=== PATIENT | female | born 1970 | race Caucasian/White ===

== ENCOUNTER 2018-11-13 14:11 | Inpatient (IN) ==
[2018-11-13] MEDS ORDERED: Isovue-370 500 ML BOTTLE IVP ONE (14:20)
[2018-11-13] MEDS ORDERED: *HR* FentaNYL (PF) 100 MCG/2 ML VIAL IVP ONE (14:22)
[2018-11-13 15:05] LABS: Mean Platelet Volume 11.4 fL (9.4-12.4)
[2018-11-13 15:07] LABS: Hematocrit 31.3 % (35.3-44.9); Mean Corpuscular HGB Conc 31.9 g/dL (31.6-35.5); Mean Corpuscular Hemoglobin 29.8 pg (28.0-33.3); Mean Corpuscular Volume 93.2 fL (83.0-100.0); Monocytes # 0.3 K/mcL (0.0-1.3); Platelet Count 179 K/mcL (140-400); Red Blood Count 3.36 M/mcL (3.82-4.97); Red Cell Distribution Width 18.5 % (11.5-14.5); White Blood Count 1.8 K/mcL (4.3-11.1)
[2018-11-13 15:25] LABS: Alanine Aminotransferase 8 Units/L (7-52); Albumin/Globulin Ratio 1.5 (1.1-2.2); Alkaline Phosphatase 69 Units/L (34-104); Aspartate Amino Transferase 10 Units/L (13-39); BUN/Creatinine Ratio 27 (6-26); Bilirubin,Total 0.2 mg/dL (0.3-1.0); Blood Urea Nitrogen 14 mg/dL (6-20); Calcium 9.3 mg/dL (8.6-10.3); Carbon Dioxide 26 mEq/L (23-29); Chloride 99 mEq/L (98-107); Globulin 2.7 g/dL (2.4-3.5); Glucose 86 mg/dL (70-105); Magnesium 1.9 mg/dL (1.6-2.6); Osmolality,Calculated 282 (280-300); Potassium 3.6 mEq/L (3.5-5.1); Sodium 136 mEq/L (136-145); Total Protein 6.7 g/dL (6.4-8.9); eGFR For African Americans > 60 (> 60); eGFR For Non-African Americans > 60 (> 60)
[2018-11-13 15:38] LABS: Lymphocytes # 0.6 K/mcL (0.6-4.6); Neutrophils # 0.9 K/mcL (1.6-8.9); Reactive Lymphocytes Present (Not Present)
[2018-11-13 15:39] LABS: Platelet Estimate Normal (Normal)
[2018-11-13 15:40] LABS: Toxic Granulation Present (Not Present)
[2018-11-13] MEDS ORDERED: *HR* HYDROmorphone (PF) 1 MG/ML SYRINGE IVP ONE (16:35)
[2018-11-13] MEDS ORDERED: Piperacillin/Tazobactam 3.375 GM in 0.9 % Sodium Chloride Mini Bag 100 ML IVPB ONE (16:36)
[2018-11-13] MEDS ORDERED: levoFLOXacin 500 MG/100 ML 500 MG/100 ML BAG IVPB ONE (16:36)
[2018-11-13] MEDS ORDERED: Naloxone 0.4 MG/ML INJ IVP PRN (17:13)
[2018-11-13] MEDS ORDERED: *HR* HYDROcodone/Acet 5/325 mg TABLET GTUBE PRN (17:13)
[2018-11-13] MEDS ORDERED: Albuterol 2.5 MG/3 ML NEBULIZER IH PRN (17:18)
[2018-11-13 17:22] LABS: Bilirubin,Urine Negative (Negative); Blood,Urine Negative (Negative); Clarity,Urine Clear (Clear); Color,Urine Yellow (Yellow); Glucose,Urine (UA) Normal (Normal); Ketones,Urine Negative (Negative); Leukocyte Esterase,Urine Negative (Negative); Nitrite,Urine Negative (Negative); PH,Urine 8.5 pH Units (5.0-8.0); Protein,Urine Negative (Neg-Trace); Specific Gravity,Urine > 1.030 (1.010-1.025); Urobilinogen,Urine Normal (Normal)
[2018-11-13] MEDS ORDERED: *HR* OxyCODONE/APAP 5/325 TABLET GTUBE PRN (18:08)
[2018-11-13 18:11] LABS: Prothrombin Time 11.3 Seconds (9.4-12.1)
[2018-11-13 18:13] LABS: Activated Partial Thrombo Time 33.4 Seconds (26.0-36.0)
[2018-11-13] MEDS: D5% in Lactated Ringers 1,000 ML IVC SCH ×2 (20:34→20:54)
[2018-11-13] MEDS: traZODone 50 MG TABLET PO SCH ×2 (20:41→20:53)
[2018-11-13] MEDS: *HR* Heparin 5,000 UNIT/ML VIAL SQ SCH (20:41)
[2018-11-13] MEDS: Ondansetron 4 MG/2 ML VIAL IVP PRN (21:39)
[2018-11-14] MEDS ORDERED: *HR* Methadone 5 MG TABLET PO SCH
[2018-11-14] MEDS ORDERED: *HR* Methadone 10 MG TABLET PO SCH
[2018-11-14] MEDS: Cefepime HCl 2,000 MG in Water for inj. (sterile) 20 ML IVP SCH ×2 (00:02→08:44)
[2018-11-14] MEDS ORDERED: *HR* OxyCODONE Oral Soln 5 MG/5 ML UD.LIQ GTUBE PRN ×2 (00:51→02:29)
[2018-11-14] MEDS ORDERED: Saline Nasal Spray 44 ML BOTTLE NS PRN (00:53)
[2018-11-14] MEDS ORDERED: *HR* OxyCODONE Oral Soln 5 MG/5 ML UD.LIQ PO PRN (02:41)
[2018-11-14 05:22] LABS: Hemoglobin 9.1 g/dL (11.5-15.4); Red Cell Distribution Width 18.6 % (11.5-14.5)
[2018-11-14 05:24] LABS: Hematocrit 27.9 % (35.3-44.9); Mean Corpuscular HGB Conc 32.6 g/dL (31.6-35.5); Mean Corpuscular Hemoglobin 29.6 pg (28.0-33.3); Mean Corpuscular Volume 90.9 fL (83.0-100.0); Mean Platelet Volume 10.7 fL (9.4-12.4); Platelet Count 167 K/mcL (140-400); Red Blood Count 3.07 M/mcL (3.82-4.97); White Blood Count 1.4 K/mcL (4.3-11.1)
[2018-11-14] MEDS: *HR* Heparin 5,000 UNIT/ML VIAL SQ SCH ×3 (05:39→20:40)
[2018-11-14] MEDS: D5% in Lactated Ringers 1,000 ML IVC SCH (05:40)
[2018-11-14 05:41] LABS: BUN/Creatinine Ratio 15 (6-26); Blood Urea Nitrogen 8 mg/dL (6-20); Calcium 8.1 mg/dL (8.6-10.3); Carbon Dioxide 25 mEq/L (23-29); Chloride 106 mEq/L (98-107); Glucose 112 mg/dL (70-105); Magnesium 1.7 mg/dL (1.6-2.6); Osmolality,Calculated 279 (280-300); Phosphorous 3.4 mg/dL (2.7-4.5); Potassium 3.4 mEq/L (3.5-5.1); Sodium 135 mEq/L (136-145); eGFR For African Americans > 60 (> 60); eGFR For Non-African Americans > 60 (> 60)
[2018-11-14 06:59] LABS: Lymphocytes # 0.4 K/mcL (0.6-4.6); Monocytes # 0.1 K/mcL (0.0-1.3); Neutrophils # 0.9 K/mcL (1.6-8.9)
[2018-11-14 07:00] LABS: Platelet Estimate Normal (Normal); Toxic Granulation Present (Not Present)
[2018-11-14] MEDS: *HR* Methadone 5 MG TABLET PO SCH ×2 (08:02→15:34)
[2018-11-14] MEDS: *HR* OxyCODONE Oral Soln 5 MG/5 ML UD.LIQ PO PRN ×4 (08:45→20:38)
[2018-11-14] MEDS ORDERED: Potassium Chloride Elixir 20 MEQ/15 ML UDC GTUBE ONE (09:00)
[2018-11-14] MEDS ORDERED: *HR* LORazepam 0.5 MG TABLET PO SCH (09:00)
[2018-11-14] MEDS ORDERED: Topiramate 25 MG CAP.SPRINK PO SCH (09:00)
[2018-11-14] MEDS: Ondansetron 4 MG/2 ML VIAL IVP PRN (10:49)
[2018-11-14] MEDS: Potassium Chloride Elixir 20 MEQ/15 ML UDC GTUBE SCH ×2 (10:49→20:37)
[2018-11-14] MEDS ORDERED: HydrOXYzine SYP 10 MG/5 ML UDC GTUBE PRN (14:16)
[2018-11-14] MEDS: Metoclopramide 10 MG/10 ML UD.LIQ GTUBE PRN (14:27)
[2018-11-14] MEDS: tiZANidine 4 MG TABLET GTUBE SCH ×2 (15:34→20:38)
[2018-11-14] MEDS: *HR* LORazepam 0.5 MG TABLET GTUBE SCH ×2 (15:34→20:38)
[2018-11-14] MEDS: Gabapentin 400 MG CAPSULE GTUBE SCH ×2 (15:34→20:38)
[2018-11-14] MEDS: Piperacillin/Tazobactam 3.375 GM in 0.9 % Sodium Chloride Mini Bag 100 ML IVPB SCH (15:35)
[2018-11-14] MEDS: Nystatin SUSP 5 ML UD.LIQ PO SCH ×2 (16:15→20:58)
[2018-11-14] MEDS: Famotidine 20 MG TABLET GTUBE SCH (20:37)
[2018-11-14] MEDS: traZODone 50 MG TABLET GTUBE SCH (20:37)
[2018-11-14] MEDS: Topiramate 25 MG CAP.SPRINK PO SCH (20:37)
[2018-11-15] MEDS: *HR* Methadone 5 MG TABLET PO SCH ×3 (00:39→17:17)
[2018-11-15] MEDS: *HR* OxyCODONE Oral Soln 5 MG/5 ML UD.LIQ PO PRN ×6 (00:40→21:53)
[2018-11-15] MEDS: Piperacillin/Tazobactam 3.375 GM in 0.9 % Sodium Chloride Mini Bag 100 ML IVPB SCH ×3 (00:40→17:17)
[2018-11-15] MEDS: *HR* Heparin 5,000 UNIT/ML VIAL SQ SCH ×3 (04:43→21:55)
[2018-11-15 08:22] LABS: Basophils % 0.6 %; Mean Platelet Volume 10.5 fL (9.4-12.4); Red Cell Distribution Width 18.8 % (11.5-14.5)
[2018-11-15 08:23] LABS: Eosinophils % 2.4 %; Hematocrit 30.8 % (35.3-44.9); Hemoglobin 9.9 g/dL (11.5-15.4); Immature Granulocytes % 0.6 % (0-4); Lymphocytes # 0.4 K/mcL (0.6-4.6); Lymphocytes % 23.5 %; Mean Corpuscular HGB Conc 32.1 g/dL (31.6-35.5); Mean Corpuscular Hemoglobin 30.3 pg (28.0-33.3); Mean Corpuscular Volume 94.2 fL (83.0-100.0); Monocytes # 0.3 K/mcL (0.0-1.3); Monocytes % 15.1 %; Platelet Count 188 K/mcL (140-400); Red Blood Count 3.27 M/mcL (3.82-4.97); Segmented Neutrophils % 57.8 %; White Blood Count 1.7 K/mcL (4.3-11.1)
[2018-11-15] MEDS: Potassium Chloride Elixir 20 MEQ/15 ML UDC GTUBE SCH ×2 (08:45→21:54)
[2018-11-15] MEDS: Famotidine 20 MG TABLET GTUBE SCH ×2 (08:46→21:54)
[2018-11-15] MEDS: *HR* LORazepam 0.5 MG TABLET GTUBE SCH ×3 (08:46→21:55)
[2018-11-15] MEDS: Nystatin SUSP 5 ML UD.LIQ PO SCH ×4 (08:46→21:53)
[2018-11-15] MEDS: Gabapentin 400 MG CAPSULE GTUBE SCH ×3 (08:46→21:54)
[2018-11-15 08:47] LABS: Platelet Estimate Normal (Normal)
[2018-11-15] MEDS: tiZANidine 4 MG TABLET GTUBE SCH ×3 (08:47→21:54)
[2018-11-15] MEDS: Topiramate 25 MG CAP.SPRINK PO SCH ×2 (08:47→21:53)
[2018-11-15 08:48] LABS: Anisocytosis 1+ (Not Present)
[2018-11-15] MEDS: Metoclopramide 10 MG/10 ML UD.LIQ GTUBE PRN (09:21)
[2018-11-15] MEDS ORDERED: GuaiFENesin Liq 200 MG/10 ML UDC GTUBE PRN (17:09)
[2018-11-15] MEDS: traZODone 50 MG TABLET GTUBE SCH (21:54)
[2018-11-15] MEDS: Silver Sulfadiazine 50 GM TUBE TP SCH (21:55)
[2018-11-16] MEDS: *HR* Methadone 5 MG TABLET PO SCH ×2 (00:48→08:20)
[2018-11-16] MEDS: Piperacillin/Tazobactam 3.375 GM in 0.9 % Sodium Chloride Mini Bag 100 ML IVPB SCH ×2 (00:48→08:21)
[2018-11-16] MEDS: *HR* OxyCODONE Oral Soln 5 MG/5 ML UD.LIQ PO PRN ×5 (03:42→21:19)
[2018-11-16] MEDS: *HR* Heparin 5,000 UNIT/ML VIAL SQ SCH ×3 (05:35→21:19)
[2018-11-16 06:43] LABS: Immature Granulocytes % 0.7 % (0-4)
[2018-11-16 06:44] LABS: Eosinophils % 2.9 %; Hematocrit 32.1 % (35.3-44.9); Hemoglobin 10.4 g/dL (11.5-15.4); Lymphocytes # 0.3 K/mcL (0.6-4.6); Lymphocytes % 22.6 %; Mean Corpuscular HGB Conc 32.4 g/dL (31.6-35.5); Mean Corpuscular Hemoglobin 30.1 pg (28.0-33.3); Mean Platelet Volume 10.3 fL (9.4-12.4); Monocytes # 0.2 K/mcL (0.0-1.3); Monocytes % 16.1 %; Neutrophils # 0.8 K/mcL (1.6-8.9); Platelet Count 212 K/mcL (140-400); Red Blood Count 3.45 M/mcL (3.82-4.97); Red Cell Distribution Width 18.6 % (11.5-14.5); Segmented Neutrophils % 57.7 %; White Blood Count 1.4 K/mcL (4.3-11.1)
[2018-11-16 07:01] LABS: BUN/Creatinine Ratio 7 (6-26); Blood Urea Nitrogen 5 mg/dL (6-20); Calcium 8.6 mg/dL (8.6-10.3); Carbon Dioxide 26 mEq/L (23-29); Chloride 103 mEq/L (98-107); Glucose 88 mg/dL (70-105); Osmolality,Calculated 283 (280-300); Sodium 138 mEq/L (136-145); eGFR For African Americans > 60 (> 60); eGFR For Non-African Americans > 60 (> 60)
[2018-11-16] MEDS: Nystatin SUSP 5 ML UD.LIQ PO SCH ×4 (08:21→21:20)
[2018-11-16] MEDS ORDERED: Sennosides 8.6 MG TABLET PO SCH (09:00)
[2018-11-16] MEDS: tiZANidine 4 MG TABLET GTUBE SCH ×3 (09:43→21:20)
[2018-11-16] MEDS: Gabapentin 400 MG CAPSULE GTUBE SCH ×3 (09:43→21:20)
[2018-11-16] MEDS: Topiramate 25 MG CAP.SPRINK PO SCH ×2 (09:43→21:20)
[2018-11-16] MEDS: *HR* LORazepam 0.5 MG TABLET GTUBE SCH ×3 (09:44→21:20)
[2018-11-16] MEDS: Potassium Chloride Elixir 20 MEQ/15 ML UDC GTUBE SCH ×2 (09:44→21:20)
[2018-11-16] MEDS: Famotidine 20 MG TABLET GTUBE SCH ×2 (09:44→21:20)
[2018-11-16] MEDS: Silver Sulfadiazine 50 GM TUBE TP SCH ×2 (10:12→21:22)
[2018-11-16] MEDS: Metoclopramide 10 MG/10 ML UD.LIQ GTUBE PRN (10:52)
[2018-11-16] MEDS ORDERED: Aminoglycoside Consult 1 EACH MC ONE (15:32)
[2018-11-16] MEDS ORDERED: 0.9 % Sodium Chloride 1,000 ML ONE (15:58)
[2018-11-16] MEDS: 0.9 % Sodium Chloride 1,000 ML IVC SCH (16:04)
[2018-11-16] MEDS: Methadone Oral Concentrate 50 MG/5 ML UDC PO SCH (17:13)
[2018-11-16] MEDS: Amoxicillin/Clavulanate 400 MG/5 ML UDC GTUBE SCH (17:14)
[2018-11-16] MEDS: traZODone 50 MG TABLET GTUBE SCH (21:20)
[2018-11-17] MEDS: Methadone Oral Concentrate 50 MG/5 ML UDC PO SCH ×3 (00:41→15:20)
[2018-11-17 05:04] LABS: Basophils % 0.7 %; Mean Corpuscular Hemoglobin 30.3 pg (28.0-33.3); Mean Platelet Volume 10.4 fL (9.4-12.4)
[2018-11-17 05:06] LABS: Eosinophils # 0.1 K/mcL (0.0-0.6); Eosinophils % 3.3 %; Hematocrit 38.1 % (35.3-44.9); Hemoglobin 12.1 g/dL (11.5-15.4); Immature Granulocytes % 0.7 % (0-4); Lymphocytes % 29.6 %; Mean Corpuscular HGB Conc 31.8 g/dL (31.6-35.5); Mean Corpuscular Volume 95.3 fL (83.0-100.0); Monocytes # 0.3 K/mcL (0.0-1.3); Monocytes % 17.1 %; Neutrophils # 0.7 K/mcL (1.6-8.9); Platelet Count 218 K/mcL (140-400); Segmented Neutrophils % 48.6 %; White Blood Count 1.5 K/mcL (4.3-11.1)
[2018-11-17 05:08] LABS: Lymphocytes # 0.4 K/mcL (0.6-4.6)
[2018-11-17 05:25] LABS: BUN/Creatinine Ratio 15 (6-26); Blood Urea Nitrogen 9 mg/dL (6-20); Calcium 8.3 mg/dL (8.6-10.3); Carbon Dioxide 21 mEq/L (23-29); Chloride 108 mEq/L (98-107); Glucose 117 mg/dL (70-105); Osmolality,Calculated 284 (280-300); Potassium 4.6 mEq/L (3.5-5.1); Sodium 137 mEq/L (136-145); eGFR For African Americans > 60 (> 60); eGFR For Non-African Americans > 60 (> 60)
[2018-11-17 05:30] LABS: Anisocytosis 1+ (Not Present)
[2018-11-17 05:31] LABS: Platelet Estimate Normal (Normal); Reactive Lymphocytes Present (Not Present)
[2018-11-17] MEDS: *HR* Heparin 5,000 UNIT/ML VIAL SQ SCH ×2 (05:47→12:24)
[2018-11-17] MEDS: Amoxicillin/Clavulanate 400 MG/5 ML UDC GTUBE SCH ×2 (05:47→15:21)
[2018-11-17] MEDS: *HR* OxyCODONE Oral Soln 5 MG/5 ML UD.LIQ PO PRN ×2 (07:42→12:23)
[2018-11-17] MEDS: Nystatin SUSP 5 ML UD.LIQ PO SCH ×3 (07:43→15:20)
[2018-11-17] MEDS: Topiramate 25 MG CAP.SPRINK PO SCH (07:43)
[2018-11-17] MEDS: *HR* LORazepam 0.5 MG TABLET GTUBE SCH ×2 (07:43→15:20)
[2018-11-17] MEDS: Famotidine 20 MG TABLET GTUBE SCH (07:43)
[2018-11-17] MEDS: tiZANidine 4 MG TABLET GTUBE SCH ×2 (07:43→15:20)
[2018-11-17] MEDS: Gabapentin 400 MG CAPSULE GTUBE SCH ×2 (07:43→15:20)
[2018-11-17] MEDS: Potassium Chloride Elixir 20 MEQ/15 ML UDC GTUBE SCH (07:44)
[2018-11-17] MEDS: Silver Sulfadiazine 50 GM TUBE TP SCH (07:45)
[2018-11-17 08:18] VITALS: BP 95/57
[2018-11-17] MEDS: 0.9 % Sodium Chloride 1,000 ML IVC SCH (14:08)
== END 2018-11-17 15:33 | disposition home health service (06) | DRG 872 ==
LOC: EMEROOARM 14:11 → 3ANU 14:11 → SUATTDRO 18:56 → 3ANU 19:44
PROVIDERS: ADMIT Internal Medicine; ATTEND Family Medicine

== ENCOUNTER 2020-06-11 12:51 | Inpatient (IN) ==
[2020-06-11] MEDS ORDERED: Isovue-370 500 ML BOTTLE IVP ONE (13:10)
[2020-06-11] MEDS ORDERED: *HR* FentaNYL (PF) 100 MCG/2 ML VIAL IVP ONE (13:11)
[2020-06-11 13:48] LABS: Basophils % 0.5 %; Eosinophils % 0.3 %; Hematocrit 43.2 % (35.3-44.9); Hemoglobin 14.1 g/dL (11.5-15.4); Immature Granulocytes % 0.2 % (0-4); Lymphocytes % 16.5 %; Mean Corpuscular HGB Conc 32.6 g/dL (31.6-35.5); Mean Corpuscular Hemoglobin 28.3 pg (28.0-33.3); Mean Corpuscular Volume 86.7 fL (83.0-100.0); Mean Platelet Volume 9.4 fL (9.4-12.4); Monocytes # 0.3 K/mcL (0.0-1.3); Monocytes % 4.3 %; Neutrophils # 4.7 K/mcL (1.6-8.9); Platelet Count 388 K/mcL (140-400); Red Blood Count 4.98 M/mcL (3.82-4.97); Red Cell Distribution Width 13.4 % (11.5-14.5); Segmented Neutrophils % 78.2 %; White Blood Count 6.1 K/mcL (4.3-11.1)
[2020-06-11 13:59] LABS: Activated Partial Thrombo Time 30.8 Seconds (26.0-36.0)
[2020-06-11 14:03] LABS: BUN/Creatinine Ratio 7 (6-26); Blood Urea Nitrogen 5 mg/dL (6-20); Calcium 9.7 mg/dL (8.6-10.3); Carbon Dioxide 26 mEq/L (23-29); Chloride 102 mEq/L (98-107); Glucose 95 mg/dL (70-105); Osmolality,Calculated 281 (280-300); Potassium 3.4 mEq/L (3.5-5.1); Sodium 137 mEq/L (136-145); eGFR For African Americans > 60 (> 60); eGFR For Non-African Americans > 60 (> 60)
[2020-06-11] MEDS ORDERED: Naloxone 0.4 MG/ML INJ IVP PRN (15:26)
[2020-06-11] MEDS ORDERED: Morphine Sulfate 2 MG/ML SYRINGE IVP ONE (15:27)
[2020-06-11] MEDS ORDERED: Ondansetron 4 MG/2 ML VIAL IVP ONE (15:32)
[2020-06-11] MEDS ORDERED: 0.9 % Sodium Chloride 1,000 ML IV ONE (15:33)
[2020-06-11] MEDS ORDERED: Potassium Chloride 40 MEQ in D5% in 0.9% NACL 1,000 ML IVC SCH (15:45)
[2020-06-11] MEDS: Morphine Sulfate 2 MG/ML SYRINGE IVP PRN (18:46)
[2020-06-11] MEDS ORDERED: *HR* LORazepam 2 MG/ML VIAL IVP ONE (21:14)
[2020-06-12] MEDS: Morphine Sulfate 2 MG/ML SYRINGE IVP PRN ×3 (01:15→13:42)
[2020-06-12 01:57] LABS: Eosinophils # 0.1 K/mcL (0.0-0.6); Eosinophils % 2.3 %; Hematocrit 37.7 % (35.3-44.9); Lymphocytes # 1.2 K/mcL (0.6-4.6); Lymphocytes % 38.4 %; Mean Corpuscular HGB Conc 32.6 g/dL (31.6-35.5); Mean Corpuscular Hemoglobin 28.9 pg (28.0-33.3); Mean Corpuscular Volume 88.5 fL (83.0-100.0); Mean Platelet Volume 9.3 fL (9.4-12.4); Monocytes # 0.3 K/mcL (0.0-1.3); Neutrophils # 1.5 K/mcL (1.6-8.9); Platelet Count 291 K/mcL (140-400); Red Blood Count 4.26 M/mcL (3.82-4.97); Red Cell Distribution Width 13.5 % (11.5-14.5); Segmented Neutrophils % 48.3 %; White Blood Count 3.1 K/mcL (4.3-11.1)
[2020-06-12 02:09] LABS: Hemoglobin 12.3 g/dL (11.5-15.4)
[2020-06-12 02:18] LABS: BUN/Creatinine Ratio 9 (6-26); Blood Urea Nitrogen 6 mg/dL (6-20); Calcium 8.5 mg/dL (8.6-10.3); Carbon Dioxide 22 mEq/L (23-29); Chloride 110 mEq/L (98-107); Glucose 82 mg/dL (70-105); Magnesium 1.8 mg/dL (1.6-2.6); Osmolality,Calculated 285 (280-300); Phosphorous 3.6 mg/dL (2.7-4.5); Potassium 3.7 mEq/L (3.5-5.1); Sodium 139 mEq/L (136-145); eGFR For African Americans > 60 (> 60); eGFR For Non-African Americans > 60 (> 60)
[2020-06-12 02:24] LABS: Platelet Estimate Normal (Normal)
[2020-06-12 08:15] LABS: Adenovirus Not Detected (Not Detect); Coronavirus 229E Not Detected (Not Detect); Coronavirus HKU1 Not Detected (Not Detect); Coronavirus NL63 Not Detected (Not Detect); Coronavirus OC43 Not Detected (Not Detect); Human Metapneumovirus Not Detected (Not Detect); Human Rhinovirus/Enterovirus Not Detected (Not Detect); Influenza A Subtype 2009 H1 Not Detected (Not Detect); SARS-CoV-2 Not Detected (Not Detect)
[2020-06-12 08:16] LABS: Bordetella Pertussis Not Detected (Not Detect); Chlamydophila pneumoniae Not Detected (Not Detect); Influenza B Not Detected (Not Detect); Mycoplasma pneumoniae Not Detected (Not Detect); Parainfluenza Virus 1 Not Detected (Not Detect); Parainfluenza Virus 2 Not Detected (Not Detect); Parainfluenza Virus 3 Not Detected (Not Detect); Parainfluenza Virus 4 Not Detected (Not Detect); Respiratory Syncytial Virus Not Detected (Not Detect)
[2020-06-12] MEDS: D5% in 0.9% NACL 1,000 ML IVC SCH (08:46)
[2020-06-12] MEDS ORDERED: Levothyroxine Sodium 100 MCG VIAL IVP SCH (09:00)
[2020-06-12] MEDS ORDERED: Ondansetron 4 MG/2 ML VIAL ONE (10:51)
[2020-06-12] MEDS ORDERED: *HR* Propofol 200 MG/20 ML VIAL IVP ONE ×2 (10:51→11:42)
[2020-06-12] MEDS ORDERED: Lidocaine -MPF 2% 2 ML VIAL ONE (10:51)
[2020-06-12] MEDS ORDERED: *HR* FentaNYL (PF) 100 MCG/2 ML VIAL ONE (10:51)
[2020-06-12] MEDS: *HR* HYDROmorphone PF 0.5 MG/0.5 ML SYRINGE IVP PRN ×3 (12:15→12:39)
[2020-06-12] MEDS ORDERED: Pantoprazole 40 MG VIAL IVP ONE (14:37)
[2020-06-12] MEDS ORDERED: Ketorolac 15 MG/ML VIAL IM ONE (16:06)
[2020-06-12] MEDS ORDERED: Morphine Sulfate 2 MG/ML SYRINGE IVP PRN (16:09)
[2020-06-12] MEDS ORDERED: Simethicone 40 MG/0.6 ML MLS PO PRN (16:26)
[2020-06-12] MEDS: Ondansetron 4 MG/2 ML VIAL IVP PRN (18:35)
[2020-06-12] MEDS: Simethicone 40 MG/0.6 ML MLS GTUBE PRN (19:41)
[2020-06-12] MEDS: tiZANidine 4 MG TABLET GTUBE SCH (20:14)
[2020-06-12] MEDS: Gabapentin 300 MG CAPSULE GTUBE SCH (20:14)
[2020-06-12] MEDS: traZODone 50 MG TABLET GTUBE SCH (20:15)
[2020-06-12 20:50] LABS: Hematocrit 33.3 % (35.3-44.9); Hemoglobin 11.1 g/dL (11.5-15.4)
[2020-06-12] MEDS: *HR* HYDROmorphone (PF) 1 MG/ML SYRINGE IVP PRN ×2 (21:25→23:37)
[2020-06-13] MEDS ORDERED: Prochlorperazine 10 MG/2 ML VIAL IVP PRN (00:31)
[2020-06-13] MEDS: D5% in 0.9% NACL 1,000 ML IVC SCH ×2 (01:11→15:50)
[2020-06-13 02:10] LABS: Basophils % 0.1 %; Hematocrit 29.4 % (35.3-44.9); Hemoglobin 9.7 g/dL (11.5-15.4); Immature Granulocytes % 0.3 % (0-4); Lymphocytes # 0.4 K/mcL (0.6-4.6); Lymphocytes % 4.8 %; Mean Corpuscular Hemoglobin 28.6 pg (28.0-33.3); Mean Corpuscular Volume 86.7 fL (83.0-100.0); Mean Platelet Volume 9.6 fL (9.4-12.4); Monocytes # 0.6 K/mcL (0.0-1.3); Monocytes % 6.2 %; Platelet Count 250 K/mcL (140-400); Red Blood Count 3.39 M/mcL (3.82-4.97); Red Cell Distribution Width 13.1 % (11.5-14.5); Segmented Neutrophils % 88.6 %
[2020-06-13 02:11] LABS: Neutrophils # 8.1 K/mcL (1.6-8.9); White Blood Count 9.1 K/mcL (4.3-11.1)
[2020-06-13 02:26] LABS: BUN/Creatinine Ratio 14 (6-26); Blood Urea Nitrogen 8 mg/dL (6-20); Calcium 7.8 mg/dL (8.6-10.3); Carbon Dioxide 21 mEq/L (23-29); Chloride 105 mEq/L (98-107); Glucose 401 mg/dL (70-105); Magnesium 1.5 mg/dL (1.6-2.6); Osmolality,Calculated 295 (280-300); Phosphorous 3.7 mg/dL (2.7-4.5); Potassium 3.5 mEq/L (3.5-5.1); Sodium 135 mEq/L (136-145); eGFR For African Americans > 60 (> 60); eGFR For Non-African Americans > 60 (> 60)
[2020-06-13] MEDS: *HR* HYDROmorphone (PF) 1 MG/ML SYRINGE IVP PRN ×6 (03:17→16:03)
[2020-06-13] MEDS: Topiramate 25 MG TABLET GTUBE SCH (08:07)
[2020-06-13] MEDS: Gabapentin 300 MG CAPSULE GTUBE SCH ×3 (08:07→20:13)
[2020-06-13] MEDS ORDERED: RIBOFLAVIN 100 MG GTUBE SCH (09:00)
[2020-06-13] MEDS: Simethicone 40 MG/0.6 ML MLS GTUBE PRN (09:23)
[2020-06-13] MEDS: Methadone Oral Concentrate 50 MG/5 ML UDC GTUBE SCH (17:55)
[2020-06-13] MEDS: *HR* OxyCODONE Oral Soln 5 MG/5 ML UD.LIQ GTUBE PRN (20:12)
[2020-06-13] MEDS: traZODone 50 MG TABLET GTUBE SCH (20:13)
[2020-06-13] MEDS: tiZANidine 4 MG TABLET GTUBE SCH (20:13)
[2020-06-13] MEDS: Metoclopramide 10 MG/10 ML UD.LIQ GTUBE SCH (21:00)
[2020-06-13] MEDS ORDERED: Acetaminophen IV 500 MG/50 ML BAG IVPB ONE (23:00)
[2020-06-13] MEDS ORDERED: Acetaminophen IV 500 MG/50 ML BAG IVPB SCH (23:00)
[2020-06-14] MEDS: *HR* OxyCODONE Oral Soln 5 MG/5 ML UD.LIQ GTUBE PRN ×6 (00:05→20:50)
[2020-06-14 02:16] LABS: Basophils % 0.1 %; Eosinophils % 0.1 %; Hemoglobin 10.1 g/dL (11.5-15.4); Immature Granulocytes % 0.2 % (0-4); Lymphocytes # 0.4 K/mcL (0.6-4.6); Lymphocytes % 3.8 %; Mean Corpuscular HGB Conc 33.7 g/dL (31.6-35.5); Mean Corpuscular Hemoglobin 28.9 pg (28.0-33.3); Mean Platelet Volume 9.6 fL (9.4-12.4); Monocytes # 0.6 K/mcL (0.0-1.3); Monocytes % 5.7 %; Neutrophils # 8.7 K/mcL (1.6-8.9); Platelet Count 248 K/mcL (140-400); Red Blood Count 3.49 M/mcL (3.82-4.97); Red Cell Distribution Width 13.3 % (11.5-14.5); Segmented Neutrophils % 90.1 %; White Blood Count 9.7 K/mcL (4.3-11.1)
[2020-06-14 02:37] LABS: % Iron Saturation 4 % (15-50); BUN/Creatinine Ratio 13 (6-26); Blood Urea Nitrogen 6 mg/dL (6-20); Calcium 7.8 mg/dL (8.6-10.3); Carbon Dioxide 24 mEq/L (23-29); Chloride 100 mEq/L (98-107); Glucose 119 mg/dL (70-105); Iron 12 mcg/dL (50-170); Magnesium 1.9 mg/dL (1.6-2.6); Osmolality,Calculated 273 (280-300); Sodium 132 mEq/L (136-145); Transferrin 192 mg/dL (203-362); eGFR For African Americans > 60 (> 60); eGFR For Non-African Americans > 60 (> 60)
[2020-06-14 02:52] LABS: Ferritin 57 ng/mL (10-120)
[2020-06-14 02:58] LABS: Folate 4.1 ng/mL (3.0-16.0)
[2020-06-14] MEDS: Methadone Oral Concentrate 50 MG/5 ML UDC GTUBE SCH ×2 (03:53→15:44)
[2020-06-14] MEDS ORDERED: Potassium Chloride 40 MEQ, Lidocaine 1% 2 ML in 0.9 % Sodium Chloride 500 ML IVPB ONE (07:32)
[2020-06-14] MEDS ORDERED: Iron Sucrose Complex 200 MG in 0.9 % Sodium Chloride 100 ML IVPB ONE (07:33)
[2020-06-14] MEDS ORDERED: Cyanocobalamin (B-12) 1,000 MCG/ML VIAL SQ ONE (07:33)
[2020-06-14] MEDS: Metoclopramide 10 MG/10 ML UD.LIQ GTUBE SCH ×3 (08:27→20:54)
[2020-06-14] MEDS: Topiramate 25 MG TABLET GTUBE SCH (08:28)
[2020-06-14] MEDS: Gabapentin 300 MG CAPSULE GTUBE SCH ×3 (08:28→20:50)
[2020-06-14] MEDS: Ondansetron 4 MG/2 ML VIAL IVP PRN (08:29)
[2020-06-14] MEDS: Multivitamin Liquid 15 ML UDC GTUBE SCH (08:47)
[2020-06-14] MEDS: tiZANidine 4 MG TABLET GTUBE SCH (20:50)
[2020-06-14] MEDS: traZODone 50 MG TABLET GTUBE SCH (20:50)
[2020-06-15] MEDS: Methadone Oral Concentrate 50 MG/5 ML UDC GTUBE SCH ×2 (04:48→16:07)
[2020-06-15] MEDS: *HR* OxyCODONE Oral Soln 5 MG/5 ML UD.LIQ GTUBE PRN ×5 (04:49→21:22)
[2020-06-15] MEDS: Ondansetron 4 MG/2 ML VIAL IVP PRN ×3 (04:49→21:43)
[2020-06-15 05:48] LABS: Basophils % 0.3 %; Eosinophils # 0.1 K/mcL (0.0-0.6); Eosinophils % 2.1 %; Hematocrit 25.5 % (35.3-44.9); Immature Granulocytes % 0.5 % (0-4); Lymphocytes # 0.3 K/mcL (0.6-4.6); Lymphocytes % 4.2 %; Mean Corpuscular HGB Conc 32.9 g/dL (31.6-35.5); Mean Corpuscular Hemoglobin 29.1 pg (28.0-33.3); Mean Corpuscular Volume 88.2 fL (83.0-100.0); Mean Platelet Volume 9.7 fL (9.4-12.4); Monocytes # 0.5 K/mcL (0.0-1.3); Monocytes % 7.1 %; Neutrophils # 5.7 K/mcL (1.6-8.9); Platelet Count 182 K/mcL (140-400); Red Blood Count 2.89 M/mcL (3.82-4.97); Red Cell Distribution Width 13.8 % (11.5-14.5); Segmented Neutrophils % 85.8 %; White Blood Count 6.7 K/mcL (4.3-11.1)
[2020-06-15 05:49] LABS: Hemoglobin 8.4 g/dL (11.5-15.4)
[2020-06-15 06:42] LABS: BUN/Creatinine Ratio 16 (6-26); Blood Urea Nitrogen 9 mg/dL (6-20); Carbon Dioxide 27 mEq/L (23-29); Chloride 102 mEq/L (98-107); Glucose 112 mg/dL (70-105); Magnesium 1.9 mg/dL (1.6-2.6); Osmolality,Calculated 277 (280-300); Phosphorous 1.5 mg/dL (2.7-4.5); Potassium 3.6 mEq/L (3.5-5.1); Sodium 134 mEq/L (136-145); eGFR For African Americans > 60 (> 60); eGFR For Non-African Americans > 60 (> 60)
[2020-06-15] MEDS: Topiramate 25 MG TABLET GTUBE SCH (08:30)
[2020-06-15] MEDS: Gabapentin 300 MG CAPSULE GTUBE SCH ×3 (08:30→21:22)
[2020-06-15] MEDS: Metoclopramide 10 MG/10 ML UD.LIQ GTUBE SCH ×3 (08:30→21:21)
[2020-06-15] MEDS: Multivitamin Liquid 15 ML UDC GTUBE SCH (08:30)
[2020-06-15] MEDS: traZODone 50 MG TABLET GTUBE SCH (21:21)
[2020-06-15] MEDS: tiZANidine 4 MG TABLET GTUBE SCH (21:31)
[2020-06-16] MEDS: *HR* OxyCODONE Oral Soln 5 MG/5 ML UD.LIQ GTUBE PRN ×5 (02:43→19:52)
[2020-06-16 03:49] LABS: Basophils % 0.2 %; Eosinophils # 0.2 K/mcL (0.0-0.6); Eosinophils % 2.8 %; Hematocrit 27.2 % (35.3-44.9); Hemoglobin 8.5 g/dL (11.5-15.4); Immature Granulocytes % 0.5 % (0-4); Lymphocytes # 0.6 K/mcL (0.6-4.6); Lymphocytes % 9.8 %; Mean Corpuscular HGB Conc 31.3 g/dL (31.6-35.5); Mean Corpuscular Hemoglobin 28.6 pg (28.0-33.3); Mean Corpuscular Volume 91.6 fL (83.0-100.0); Monocytes # 0.5 K/mcL (0.0-1.3); Monocytes % 8.2 %; Neutrophils # 4.8 K/mcL (1.6-8.9); Platelet Count 232 K/mcL (140-400); Red Blood Count 2.97 M/mcL (3.82-4.97); Red Cell Distribution Width 13.8 % (11.5-14.5); Segmented Neutrophils % 78.5 %; White Blood Count 6.1 K/mcL (4.3-11.1)
[2020-06-16 03:51] LABS: Alanine Aminotransferase 7 Units/L (7-52); Albumin 3.4 g/dL (3.5-5.7); Albumin/Globulin Ratio 1.3 (1.1-2.2); Alkaline Phosphatase 84 Units/L (34-104); Aspartate Amino Transferase 14 Units/L (13-39); BUN/Creatinine Ratio 13 (6-26); Bilirubin,Indirect 0.3 mg/dL (0.0-1.0); Bilirubin,Total 0.3 mg/dL (0.3-1.0); Blood Urea Nitrogen 7 mg/dL (6-20); Calcium 8.6 mg/dL (8.6-10.3); Carbon Dioxide 28 mEq/L (23-29); Chloride 101 mEq/L (98-107); Globulin 2.7 g/dL (2.4-3.5); Glucose 98 mg/dL (70-105); Magnesium 1.9 mg/dL (1.6-2.6); Osmolality,Calculated 278 (280-300); Potassium 3.6 mEq/L (3.5-5.1); Sodium 135 mEq/L (136-145); Total Protein 6.1 g/dL (6.4-8.9); eGFR For African Americans > 60 (> 60); eGFR For Non-African Americans > 60 (> 60)
[2020-06-16] MEDS: Methadone Oral Concentrate 50 MG/5 ML UDC GTUBE SCH ×2 (04:31→16:59)
[2020-06-16] MEDS: Topiramate 25 MG TABLET GTUBE SCH (08:36)
[2020-06-16] MEDS: Gabapentin 300 MG CAPSULE GTUBE SCH ×3 (08:36→19:51)
[2020-06-16] MEDS: Multivitamin Liquid 15 ML UDC GTUBE SCH (08:37)
[2020-06-16] MEDS: Metoclopramide 10 MG/10 ML UD.LIQ GTUBE SCH ×3 (08:37→19:52)
[2020-06-16] MEDS: Ondansetron 4 MG/2 ML VIAL IVP PRN (09:04)
[2020-06-16] MEDS: tiZANidine 4 MG TABLET GTUBE SCH (19:52)
[2020-06-16] MEDS: traZODone 50 MG TABLET GTUBE SCH (19:52)
[2020-06-17] MEDS: *HR* OxyCODONE Oral Soln 5 MG/5 ML UD.LIQ GTUBE PRN ×4 (02:21→21:33)
[2020-06-17] MEDS ORDERED: polyethylene glycoL 3350 17 GM POWD.PACK PO PRN (04:31)
[2020-06-17] MEDS: Methadone Oral Concentrate 50 MG/5 ML UDC GTUBE SCH ×2 (04:41→16:22)
[2020-06-17 04:48] LABS: Basophils % 0.2 %; Eosinophils # 0.2 K/mcL (0.0-0.6); Eosinophils % 2.6 %; Hematocrit 27.6 % (35.3-44.9); Hemoglobin 8.7 g/dL (11.5-15.4); Immature Granulocytes % 0.5 % (0-4); Lymphocytes # 0.4 K/mcL (0.6-4.6); Lymphocytes % 6.9 %; Mean Corpuscular HGB Conc 31.5 g/dL (31.6-35.5); Mean Corpuscular Hemoglobin 28.3 pg (28.0-33.3); Mean Corpuscular Volume 89.9 fL (83.0-100.0); Mean Platelet Volume 10.4 fL (9.4-12.4); Monocytes # 0.8 K/mcL (0.0-1.3); Monocytes % 12.3 %; Neutrophils # 4.9 K/mcL (1.6-8.9); Platelet Count 302 K/mcL (140-400); Red Blood Count 3.07 M/mcL (3.82-4.97); Red Cell Distribution Width 13.9 % (11.5-14.5); Segmented Neutrophils % 77.5 %; White Blood Count 6.3 K/mcL (4.3-11.1)
[2020-06-17 05:07] LABS: BUN/Creatinine Ratio 17 (6-26); Blood Urea Nitrogen 8 mg/dL (6-20); Calcium 8.4 mg/dL (8.6-10.3); Carbon Dioxide 28 mEq/L (23-29); Chloride 101 mEq/L (98-107); Glucose 97 mg/dL (70-105); Magnesium 1.8 mg/dL (1.6-2.6); Osmolality,Calculated 278 (280-300); Potassium 3.9 mEq/L (3.5-5.1); Sodium 135 mEq/L (136-145); eGFR For African Americans > 60 (> 60); eGFR For Non-African Americans > 60 (> 60)
[2020-06-17] MEDS: Topiramate 25 MG TABLET GTUBE SCH (08:42)
[2020-06-17] MEDS: Metoclopramide 10 MG/10 ML UD.LIQ GTUBE SCH ×3 (08:42→21:17)
[2020-06-17] MEDS: Multivitamin Liquid 15 ML UDC GTUBE SCH (08:42)
[2020-06-17] MEDS: Gabapentin 300 MG CAPSULE GTUBE SCH ×3 (08:43→21:13)
[2020-06-17] MEDS: tiZANidine 4 MG TABLET GTUBE SCH (21:13)
[2020-06-17] MEDS: traZODone 50 MG TABLET GTUBE SCH (21:17)
[2020-06-18] MEDS: *HR* OxyCODONE Oral Soln 5 MG/5 ML UD.LIQ GTUBE PRN ×3 (01:58→10:25)
[2020-06-18] MEDS ORDERED: Acetaminophen 325 MG TABLET PO PRN (03:03)
[2020-06-18] MEDS: Methadone Oral Concentrate 50 MG/5 ML UDC GTUBE SCH (03:38)
[2020-06-18 07:01] LABS: Basophils % 0.2 %; Eosinophils # 0.1 K/mcL (0.0-0.6); Eosinophils % 1.9 %; Hematocrit 26.5 % (35.3-44.9); Hemoglobin 8.6 g/dL (11.5-15.4); Immature Granulocytes % 0.7 % (0-4); Lymphocytes # 0.4 K/mcL (0.6-4.6); Lymphocytes % 6.4 %; Mean Corpuscular HGB Conc 32.5 g/dL (31.6-35.5); Mean Corpuscular Hemoglobin 28.1 pg (28.0-33.3); Mean Corpuscular Volume 86.6 fL (83.0-100.0); Mean Platelet Volume 9.7 fL (9.4-12.4); Monocytes # 0.9 K/mcL (0.0-1.3); Monocytes % 15.4 %; Neutrophils # 4.4 K/mcL (1.6-8.9); Platelet Count 290 K/mcL (140-400); Red Blood Count 3.06 M/mcL (3.82-4.97); Red Cell Distribution Width 13.9 % (11.5-14.5); Segmented Neutrophils % 75.4 %; White Blood Count 5.8 K/mcL (4.3-11.1)
[2020-06-18 07:37] LABS: BUN/Creatinine Ratio 19 (6-26); Blood Urea Nitrogen 9 mg/dL (6-20); Calcium 8.8 mg/dL (8.6-10.3); Carbon Dioxide 26 mEq/L (23-29); Chloride 99 mEq/L (98-107); Glucose 79 mg/dL (70-105); Magnesium 1.8 mg/dL (1.6-2.6); Osmolality,Calculated 274 (280-300); Phosphorous 3.3 mg/dL (2.7-4.5); Potassium 3.8 mEq/L (3.5-5.1); Sodium 133 mEq/L (136-145); eGFR For African Americans > 60 (> 60); eGFR For Non-African Americans > 60 (> 60)
[2020-06-18] MEDS: Gabapentin 300 MG CAPSULE GTUBE SCH (08:16)
[2020-06-18] MEDS: Multivitamin Liquid 15 ML UDC GTUBE SCH (08:16)
[2020-06-18] MEDS: Topiramate 25 MG TABLET GTUBE SCH (08:16)
[2020-06-18] MEDS: Metoclopramide 10 MG/10 ML UD.LIQ GTUBE SCH (08:17)
[2020-06-18 10:42] VITALS: BP 127/67
== END 2020-06-18 13:02 | disposition home health service (06) | DRG 391 ==
LOC: 3ANU 12:51 → EMEROOARM 12:51 → SUATTDRO 15:50 → 3ANU 16:42 → SUATTDRO 06-14 21:46
PROVIDERS: ADMIT Pharmacist; ATTEND Internal Medicine

== ENCOUNTER 2020-07-08 10:02 | Inpatient (IN) ==
[2020-07-08] MEDS ORDERED: 0.9 % Sodium Chloride 1,000 ML IVC ONE (10:34)
[2020-07-08 11:20] LABS: Basophils # 0.1 K/mcL (0.0-0.2); Basophils % 0.5 %; Eosinophils # 0.4 K/mcL (0.0-0.6); Hematocrit 29.8 % (35.3-44.9); Hemoglobin 9.1 g/dL (11.5-15.4); Immature Granulocytes % 0.8 % (0-4); Lymphocytes # 1.3 K/mcL (0.6-4.6); Lymphocytes % 12.8 %; Mean Corpuscular HGB Conc 30.5 g/dL (31.6-35.5); Mean Corpuscular Hemoglobin 26.5 pg (28.0-33.3); Mean Corpuscular Volume 86.9 fL (83.0-100.0); Monocytes # 0.6 K/mcL (0.0-1.3); Neutrophils # 7.5 K/mcL (1.6-8.9); Platelet Count 572 K/mcL (140-400); Red Blood Count 3.43 M/mcL (3.82-4.97); Red Cell Distribution Width 15.3 % (11.5-14.5); Segmented Neutrophils % 75.9 %; White Blood Count 9.9 K/mcL (4.3-11.1)
[2020-07-08] MEDS ORDERED: Isovue-370 500 ML BOTTLE IVP ONE (11:40)
[2020-07-08 11:42] LABS: Alanine Aminotransferase 11 Units/L (7-52); Albumin 3.3 g/dL (3.5-5.7); Albumin/Globulin Ratio 0.8 (1.1-2.2); Alkaline Phosphatase 165 Units/L (34-104); Aspartate Amino Transferase 15 Units/L (13-39); BUN/Creatinine Ratio 12 (6-26); Bilirubin,Direct 0.1 mg/dL (0.0-0.2); Bilirubin,Indirect 0.3 mg/dL (0.0-1.0); Bilirubin,Total 0.4 mg/dL (0.3-1.0); Blood Urea Nitrogen 7 mg/dL (6-20); Calcium 8.8 mg/dL (8.6-10.3); Carbon Dioxide 28 mEq/L (23-29); Chloride 95 mEq/L (98-107); Globulin 4.4 g/dL (2.4-3.5); Glucose 111 mg/dL (70-105); Lipase 81 Units/L (11-82); Osmolality,Calculated 273 (280-300); Potassium 3.6 mEq/L (3.5-5.1); Sodium 132 mEq/L (136-145); Total Protein 7.7 g/dL (6.4-8.9); eGFR For African Americans > 60 (> 60); eGFR For Non-African Americans > 60 (> 60)
[2020-07-08] MEDS ORDERED: Ondansetron 4 MG/2 ML VIAL IVP ONE ×2 (11:51→16:04)
[2020-07-08] MEDS ORDERED: Ketorolac 15 MG/ML VIAL IVP ONE (11:51)
[2020-07-08 11:59] LABS: Troponin I < 0.03 ng/mL (< 0.04)
[2020-07-08] MEDS ORDERED: *HR* FentaNYL (PF) 100 MCG/2 ML VIAL IVP ONE (13:25)
[2020-07-08] MEDS ORDERED: *HR* HYDROmorphone (PF) 1 MG/ML SYRINGE IVP ONE ×2 (14:26→16:04)
[2020-07-08 15:44] LABS: Bilirubin,Urine Negative (Negative); Blood,Urine Negative (Negative); Clarity,Urine Clear (Clear); Color,Urine Light-Yellow (Yellow); Glucose,Urine (UA) Normal (Normal); Ketones,Urine Negative (Negative); Leukocyte Esterase,Urine Negative (Negative); Mucus,Urine Few per lpf (None-Few); Nitrite,Urine Negative (Negative); Protein,Urine 30 mg/dL (Neg-Trace); Specific Gravity,Urine > 1.030 (1.010-1.025); Squamous Epithelial Cell,Urine Moderate per hpf (None-Few)
[2020-07-08] MEDS ORDERED: *HR* Heparin 5,000 UNIT/ML VIAL IVP ONE (15:53)
[2020-07-08] MEDS ORDERED: *HR* Heparin 5,000 UNIT/ML VIAL IVP PRN ×2 (15:53)
[2020-07-08] MEDS: Heparin 25,000UNIT/250ML 1/2NS 25,000 UNIT/250 ML IV.SOLN IVC SCH (16:18)
[2020-07-08 16:54] LABS: Heparin anti-factor XA UFH < 0.04 IU/mL (0.30-0.70); INR 1.3; Prothrombin Time 14.8 Seconds (9.4-12.1)
[2020-07-08 16:56] LABS: Activated Partial Thrombo Time 32.1 Seconds (26.0-36.0)
[2020-07-08] MEDS ORDERED: Ondansetron 4 MG/2 ML VIAL IVP PRN (17:38)
[2020-07-08] MEDS ORDERED: Naloxone 0.4 MG/ML INJ IVP PRN (17:38)
[2020-07-08] MEDS ORDERED: Melatonin 3 MG TABLET PO PRN (17:38)
[2020-07-08] MEDS ORDERED: Ringers Solution, Lactated 1,000 ML IVC SCH (17:45)
[2020-07-08] MEDS: Morphine Sulfate 2 MG/ML SYRINGE IVP PRN (19:51)
[2020-07-09] MEDS: Morphine Sulfate 2 MG/ML SYRINGE IVP PRN ×5 (00:48→20:08)
[2020-07-09 05:59] LABS: Basophils % 0.5 %; Eosinophils % 0.1 %; Hematocrit 24.7 % (35.3-44.9); Hemoglobin 7.7 g/dL (11.5-15.4); Immature Granulocytes % 0.8 % (0-4); Lymphocytes # 1.1 K/mcL (0.6-4.6); Lymphocytes % 15.5 %; Mean Corpuscular HGB Conc 31.2 g/dL (31.6-35.5); Mean Corpuscular Volume 86.7 fL (83.0-100.0); Mean Platelet Volume 9.6 fL (9.4-12.4); Monocytes # 0.7 K/mcL (0.0-1.3); Neutrophils # 5.4 K/mcL (1.6-8.9); Platelet Count 431 K/mcL (140-400); Red Blood Count 2.85 M/mcL (3.82-4.97); Red Cell Distribution Width 15.3 % (11.5-14.5); Segmented Neutrophils % 74.1 %; White Blood Count 7.3 K/mcL (4.3-11.1)
[2020-07-09 06:19] LABS: % Iron Saturation 6 % (15-50); Alanine Aminotransferase 8 Units/L (7-52); Albumin 2.5 g/dL (3.5-5.7); Albumin/Globulin Ratio 0.8 (1.1-2.2); Alkaline Phosphatase 122 Units/L (34-104); Aspartate Amino Transferase 11 Units/L (13-39); BUN/Creatinine Ratio 13 (6-26); Bilirubin,Total 0.3 mg/dL (0.3-1.0); Blood Urea Nitrogen 7 mg/dL (6-20); Calcium 7.9 mg/dL (8.6-10.3); Carbon Dioxide 26 mEq/L (23-29); Chloride 102 mEq/L (98-107); Globulin 3.3 g/dL (2.4-3.5); Glucose 85 mg/dL (70-105); Iron 11 mcg/dL (50-170); Magnesium 1.8 mg/dL (1.6-2.6); Osmolality,Calculated 277 (280-300); Phosphorous 2.9 mg/dL (2.7-4.5); Potassium 3.6 mEq/L (3.5-5.1); Sodium 135 mEq/L (136-145); Total Protein 5.8 g/dL (6.4-8.9); Transferrin 130 mg/dL (203-362); eGFR For African Americans > 60 (> 60); eGFR For Non-African Americans > 60 (> 60)
[2020-07-09 06:33] LABS: Ferritin 218 ng/mL (10-120)
[2020-07-09 06:38] LABS: Folate 10.5 ng/mL (3.0-16.0)
[2020-07-09 06:52] LABS: Platelet Estimate Normal (Normal)
[2020-07-09] MEDS ORDERED: Lidocaine/EPI 1:100k 1% 50 ML VIAL ONE (07:29)
[2020-07-09] MEDS ORDERED: 0.9 % Sodium Chloride 500 ML ONE ×3 (07:29→08:00)
[2020-07-09] MEDS ORDERED: *HR* Midazolam HCl 2 MG/2 ML VIAL IVP ONE (07:55)
[2020-07-09] MEDS ORDERED: *HR* FentaNYL (PF) 100 MCG/2 ML VIAL IVP ONE (07:55)
[2020-07-09] MEDS ORDERED: Isovue-300 50ML VIAL IVP ONE (08:18)
[2020-07-09] MEDS: Pantoprazole 40 MG VIAL IVP SCH (10:00)
[2020-07-09 11:34] LABS: Hematocrit 30.7 % (35.3-44.9)
[2020-07-09 11:43] LABS: Hemoglobin 9.6 g/dL (11.5-15.4)
[2020-07-09] MEDS ORDERED: Morphine Sulfate 2 MG/ML SYRINGE IVP ONE (16:21)
[2020-07-09] MEDS ORDERED: Warfarin perPT PO PRN (18:00)
[2020-07-09 18:12] LABS: INR 1.2; Prothrombin Time 14.3 Seconds (9.4-12.1)
[2020-07-09] MEDS: Acetaminophen IV 1,000 MG/100 ML BAG IVPB PRN (18:39)
[2020-07-10] MEDS: Morphine Sulfate 2 MG/ML SYRINGE IVP PRN ×3 (00:12→08:43)
[2020-07-10 02:51] LABS: Basophils # 0.1 K/mcL (0.0-0.2); Basophils % 0.5 %; Eosinophils # 0.3 K/mcL (0.0-0.6); Eosinophils % 3.2 %; Hematocrit 25.7 % (35.3-44.9); Immature Granulocytes % 0.7 % (0-4); Lymphocytes % 9.8 %; Mean Corpuscular HGB Conc 30.7 g/dL (31.6-35.5); Mean Corpuscular Hemoglobin 26.2 pg (28.0-33.3); Mean Corpuscular Volume 85.1 fL (83.0-100.0); Mean Platelet Volume 9.7 fL (9.4-12.4); Monocytes # 0.7 K/mcL (0.0-1.3); Monocytes % 7.4 %; Neutrophils # 7.6 K/mcL (1.6-8.9); Platelet Count 441 K/mcL (140-400); Red Blood Count 3.02 M/mcL (3.82-4.97); Red Cell Distribution Width 15.1 % (11.5-14.5); Segmented Neutrophils % 78.4 %; White Blood Count 9.7 K/mcL (4.3-11.1)
[2020-07-10 02:55] LABS: Hemoglobin 7.9 g/dL (11.5-15.4)
[2020-07-10 02:59] LABS: INR 1.3; Prothrombin Time 15.1 Seconds (9.4-12.1)
[2020-07-10 03:08] LABS: BUN/Creatinine Ratio 15 (6-26); Blood Urea Nitrogen 7 mg/dL (6-20); Calcium 7.8 mg/dL (8.6-10.3); Carbon Dioxide 24 mEq/L (23-29); Chloride 100 mEq/L (98-107); Glucose 108 mg/dL (70-105); Osmolality,Calculated 275 (280-300); Potassium 3.3 mEq/L (3.5-5.1); Sodium 133 mEq/L (136-145); eGFR For African Americans > 60 (> 60); eGFR For Non-African Americans > 60 (> 60)
[2020-07-10] MEDS: Acetaminophen IV 1,000 MG/100 ML BAG IVPB PRN (03:40)
[2020-07-10 07:03] LABS: Adenovirus Not Detected (Not Detect); Bordetella Pertussis Not Detected (Not Detect); Chlamydophila pneumoniae Not Detected (Not Detect); Coronavirus 229E Not Detected (Not Detect); Coronavirus HKU1 Not Detected (Not Detect); Coronavirus NL63 Not Detected (Not Detect); Coronavirus OC43 Not Detected (Not Detect); Human Metapneumovirus Not Detected (Not Detect); Human Rhinovirus/Enterovirus Not Detected (Not Detect); Influenza A Subtype 2009 H1 Not Detected (Not Detect); Influenza B Not Detected (Not Detect); Mycoplasma pneumoniae Not Detected (Not Detect); Parainfluenza Virus 1 Not Detected (Not Detect); Parainfluenza Virus 2 Not Detected (Not Detect); Parainfluenza Virus 3 Not Detected (Not Detect); Parainfluenza Virus 4 Not Detected (Not Detect); Respiratory Syncytial Virus Not Detected (Not Detect); SARS-CoV-2 Not Detected (Not Detect)
[2020-07-10] MEDS ORDERED: Potassium Chloride 20 MEQ, Lidocaine 1% 2 ML in 0.9 % Sodium Chloride 250 ML IVPB ONE (08:23)
[2020-07-10] MEDS: Pantoprazole 40 MG VIAL IVP SCH (08:44)
[2020-07-10] MEDS ORDERED: hydrOXYzine pamoate 25 MG CAPSULE PO PRN (12:45)
[2020-07-10] MEDS ORDERED: *HR* HYDROmorphone (PF) 1 MG/ML SYRINGE IVP STA ×2 (12:45→15:39)
[2020-07-10] MEDS ORDERED: Melatonin 3 MG TABLET GTUBE PRN (12:52)
[2020-07-10 13:21] LABS: Hematocrit 27.7 % (35.3-44.9); Hemoglobin 8.6 g/dL (11.5-15.4)
[2020-07-10] MEDS ORDERED: Isovue-370 500 ML BOTTLE IVP ONE (13:44)
[2020-07-10] MEDS: Heparin 25,000UNIT/250ML 1/2NS 25,000 UNIT/250 ML IV.SOLN IVC SCH (15:01)
[2020-07-10] MEDS: *HR* Methadone 5 MG TABLET PO SCH ×2 (18:35→22:22)
[2020-07-10] MEDS: Gabapentin 300 MG CAPSULE GTUBE SCH ×2 (18:36→20:49)
[2020-07-10] MEDS: Topiramate 25 MG TABLET GTUBE SCH (18:36)
[2020-07-10] MEDS: tiZANidine 4 MG TABLET GTUBE SCH (20:49)
[2020-07-10] MEDS: traZODone 50 MG TABLET GTUBE SCH (20:50)
[2020-07-11] MEDS ORDERED: Acetaminophen IV 1,000 MG/100 ML BAG IVPB ONE (00:07)
[2020-07-11] MEDS ORDERED: Albumin 25% 25gram/100mL 25 GM/100 ML IV.SOLN IVPB ONE (04:13)
[2020-07-11 04:16] LABS: Bacteria,Urine Few per hpf (None-Few); Bilirubin,Urine Negative (Negative); Blood,Urine Negative (Negative); Clarity,Urine Clear (Clear); Color,Urine Light-Yellow (Yellow); Glucose,Urine (UA) Normal (Normal); Ketones,Urine Negative (Negative); Leukocyte Esterase,Urine Moderate (Negative); Mucus,Urine Few per lpf (None-Few); Nitrite,Urine Negative (Negative); PH,Urine 6.5 pH Units (5.0-8.0); Protein,Urine Negative (Neg-Trace); RBC,Urine 0-3 per hpf (0-3); Specific Gravity,Urine 1.011 (1.010-1.025); Squamous Epithelial Cell,Urine Moderate per hpf (None-Few); Urobilinogen,Urine Normal (Normal); WBC,Urine 15-30 per hpf (0-3)
[2020-07-11] MEDS ORDERED: *HR* Heparin 5,000 UNIT/ML VIAL SQ SCH (06:00)
[2020-07-11] MEDS: *HR* Methadone 5 MG TABLET PO SCH ×2 (06:03→17:45)
[2020-07-11 06:31] LABS: Basophils % 0.5 %; Eosinophils # 0.6 K/mcL (0.0-0.6); Eosinophils % 6.5 %; Hematocrit 23.2 % (35.3-44.9); Hemoglobin 7.1 g/dL (11.5-15.4); Immature Granulocytes % 0.5 % (0-4); Lymphocytes # 1.1 K/mcL (0.6-4.6); Lymphocytes % 12.5 %; Mean Corpuscular HGB Conc 30.6 g/dL (31.6-35.5); Mean Corpuscular Hemoglobin 26.8 pg (28.0-33.3); Mean Corpuscular Volume 87.5 fL (83.0-100.0); Mean Platelet Volume 9.9 fL (9.4-12.4); Monocytes # 0.7 K/mcL (0.0-1.3); Neutrophils # 6.4 K/mcL (1.6-8.9); Platelet Count 377 K/mcL (140-400); Red Blood Count 2.65 M/mcL (3.82-4.97); Red Cell Distribution Width 15.2 % (11.5-14.5); White Blood Count 8.9 K/mcL (4.3-11.1)
[2020-07-11 06:47] LABS: INR 1.3; Prothrombin Time 14.8 Seconds (9.4-12.1)
[2020-07-11 06:54] LABS: BUN/Creatinine Ratio 14 (6-26); Blood Urea Nitrogen 8 mg/dL (6-20); Carbon Dioxide 26 mEq/L (23-29); Chloride 100 mEq/L (98-107); Glucose 101 mg/dL (70-105); Osmolality,Calculated 274 (280-300); Potassium 3.3 mEq/L (3.5-5.1); Sodium 133 mEq/L (136-145); eGFR For African Americans > 60 (> 60); eGFR For Non-African Americans > 60 (> 60)
[2020-07-11] MEDS: Heparin 25,000UNIT/250ML 1/2NS 25,000 UNIT/250 ML IV.SOLN IVC SCH ×2 (07:21→13:02)
[2020-07-11] MEDS: Gabapentin 300 MG CAPSULE GTUBE SCH ×3 (07:54→19:44)
[2020-07-11] MEDS: Topiramate 25 MG TABLET GTUBE SCH (07:54)
[2020-07-11] MEDS ORDERED: Potassium Chloride Elixir 20 MEQ/15 ML UDC GTUBE ONE (08:08)
[2020-07-11] MEDS ORDERED: *HR* HYDROmorphone (PF) 1 MG/ML SYRINGE IM ONE (08:24)
[2020-07-11] MEDS ORDERED: *HR* OxyCODONE Oral Soln 5 MG/5 ML UD.LIQ PO PRN (11:37)
[2020-07-11] MEDS ORDERED: *HR* Heparin 5,000 UNIT/ML VIAL IVP PRN ×2 (11:59)
[2020-07-11 13:21] LABS: INR 1.2; Prothrombin Time 14.1 Seconds (9.4-12.1)
[2020-07-11 13:24] LABS: Heparin anti-factor XA UFH < 0.04 IU/mL (0.30-0.70)
[2020-07-11 16:11] LABS: Hematocrit 23.9 % (35.3-44.9); Hemoglobin 7.3 g/dL (11.5-15.4)
[2020-07-11] MEDS: Pantoprazole 40 MG VIAL IVP SCH (17:46)
[2020-07-11] MEDS: traZODone 50 MG TABLET GTUBE SCH (19:44)
[2020-07-11] MEDS: tiZANidine 4 MG TABLET GTUBE SCH (19:44)
[2020-07-11 22:13] LABS: Hematocrit 20.1 % (35.3-44.9); Hemoglobin 6.4 g/dL (11.5-15.4)
[2020-07-12] MEDS ORDERED: 0.9 % Sodium Chloride 250 ML ONE (01:10)
[2020-07-12] MEDS: Pantoprazole 40 MG VIAL IVP SCH ×2 (05:41→17:32)
[2020-07-12] MEDS: *HR* Methadone 5 MG TABLET PO SCH ×2 (05:42→17:31)
[2020-07-12 06:01] LABS: Basophils % 0.2 %; Eosinophils # 0.5 K/mcL (0.0-0.6); Eosinophils % 3.8 %; Hematocrit 26.6 % (35.3-44.9); Immature Granulocytes % 0.4 % (0-4); Lymphocytes % 8.2 %; Mean Corpuscular Hemoglobin 28.1 pg (28.0-33.3); Mean Corpuscular Volume 87.8 fL (83.0-100.0); Mean Platelet Volume 9.9 fL (9.4-12.4); Monocytes # 0.8 K/mcL (0.0-1.3); Neutrophils # 10.2 K/mcL (1.6-8.9); Platelet Count 357 K/mcL (140-400); Red Blood Count 3.03 M/mcL (3.82-4.97); Red Cell Distribution Width 14.8 % (11.5-14.5); Segmented Neutrophils % 81.4 %; White Blood Count 12.5 K/mcL (4.3-11.1)
[2020-07-12 06:03] LABS: Hemoglobin 8.5 g/dL (11.5-15.4)
[2020-07-12 06:15] LABS: BUN/Creatinine Ratio 13 (6-26); Blood Urea Nitrogen 8 mg/dL (6-20); Calcium 8.2 mg/dL (8.6-10.3); Carbon Dioxide 27 mEq/L (23-29); Chloride 98 mEq/L (98-107); Glucose 98 mg/dL (70-105); Osmolality,Calculated 274 (280-300); Potassium 3.7 mEq/L (3.5-5.1); Sodium 133 mEq/L (136-145); eGFR For African Americans > 60 (> 60); eGFR For Non-African Americans > 60 (> 60)
[2020-07-12 06:32] LABS: INR 1.2; Prothrombin Time 14.1 Seconds (9.4-12.1)
[2020-07-12] MEDS: Gabapentin 300 MG CAPSULE GTUBE SCH ×3 (08:48→20:57)
[2020-07-12] MEDS: Topiramate 25 MG TABLET GTUBE SCH (08:49)
[2020-07-12 08:51] LABS: Hematocrit 25.4 % (35.3-44.9); Hemoglobin 7.9 g/dL (11.5-15.4)
[2020-07-12] MEDS: *HR* LORazepam 2 MG/ML VIAL IVP PRN ×2 (10:16→18:20)
[2020-07-12] MEDS ORDERED: *HR* Propofol 200 MG/20 ML VIAL IVP ONE (11:05)
[2020-07-12] MEDS ORDERED: Lidocaine -MPF 2% 2 ML VIAL ONE (11:06)
[2020-07-12] MEDS: Ringers Solution, Lactated 1,000 ML IVC SCH (11:26)
[2020-07-12] MEDS: cefTRIAXone 1,000 MG in Water for inj. (sterile) 10 ML IVP SCH (13:39)
[2020-07-12 15:13] LABS: Hematocrit 26.2 % (35.3-44.9); Hemoglobin 8.2 g/dL (11.5-15.4)
[2020-07-12] MEDS: tiZANidine 4 MG TABLET GTUBE SCH (20:58)
[2020-07-12] MEDS: traZODone 50 MG TABLET GTUBE SCH (20:58)
[2020-07-13 02:05] LABS: Basophils % 0.4 %; Eosinophils # 0.6 K/mcL (0.0-0.6); Eosinophils % 5.6 %; Hematocrit 24.7 % (35.3-44.9); Hemoglobin 7.7 g/dL (11.5-15.4); Immature Granulocytes % 0.5 % (0-4); Lymphocytes # 1.3 K/mcL (0.6-4.6); Lymphocytes % 12.1 %; Mean Corpuscular HGB Conc 31.2 g/dL (31.6-35.5); Mean Corpuscular Hemoglobin 27.2 pg (28.0-33.3); Mean Corpuscular Volume 87.3 fL (83.0-100.0); Mean Platelet Volume 10.3 fL (9.4-12.4); Monocytes # 0.8 K/mcL (0.0-1.3); Monocytes % 6.9 %; Neutrophils # 8.1 K/mcL (1.6-8.9); Platelet Count 367 K/mcL (140-400); Red Blood Count 2.83 M/mcL (3.82-4.97); Red Cell Distribution Width 15.1 % (11.5-14.5); Segmented Neutrophils % 74.5 %; White Blood Count 10.8 K/mcL (4.3-11.1)
[2020-07-13 02:19] LABS: INR 1.4; Prothrombin Time 16.4 Seconds (9.4-12.1)
[2020-07-13 02:25] LABS: BUN/Creatinine Ratio 11 (6-26); Blood Urea Nitrogen 6 mg/dL (6-20); Calcium 7.9 mg/dL (8.6-10.3); Carbon Dioxide 25 mEq/L (23-29); Chloride 99 mEq/L (98-107); Glucose 96 mg/dL (70-105); Osmolality,Calculated 273 (280-300); Potassium 3.3 mEq/L (3.5-5.1); Sodium 133 mEq/L (136-145); eGFR For African Americans > 60 (> 60); eGFR For Non-African Americans > 60 (> 60)
[2020-07-13] MEDS: Pantoprazole 40 MG VIAL IVP SCH ×2 (05:58→17:50)
[2020-07-13] MEDS: *HR* Methadone 5 MG TABLET PO SCH ×2 (05:59→17:50)
[2020-07-13 06:24] LABS: Basophils % 0.4 %; Eosinophils # 0.8 K/mcL (0.0-0.6); Eosinophils % 6.9 %; Hematocrit 26.4 % (35.3-44.9); Hemoglobin 8.2 g/dL (11.5-15.4); Immature Granulocytes % 0.7 % (0-4); Lymphocytes # 1.3 K/mcL (0.6-4.6); Lymphocytes % 11.4 %; Mean Corpuscular HGB Conc 31.1 g/dL (31.6-35.5); Mean Corpuscular Hemoglobin 27.5 pg (28.0-33.3); Mean Corpuscular Volume 88.6 fL (83.0-100.0); Mean Platelet Volume 10.4 fL (9.4-12.4); Monocytes # 0.8 K/mcL (0.0-1.3); Monocytes % 7.5 %; Neutrophils # 8.2 K/mcL (1.6-8.9); Platelet Count 378 K/mcL (140-400); Red Blood Count 2.98 M/mcL (3.82-4.97); Red Cell Distribution Width 15.1 % (11.5-14.5); Segmented Neutrophils % 73.1 %; White Blood Count 11.3 K/mcL (4.3-11.1)
[2020-07-13 06:32] LABS: BUN/Creatinine Ratio 10 (6-26); Blood Urea Nitrogen 6 mg/dL (6-20); Calcium 8.1 mg/dL (8.6-10.3); Carbon Dioxide 29 mEq/L (23-29); Chloride 99 mEq/L (98-107); Glucose 86 mg/dL (70-105); Osmolality,Calculated 273 (280-300); Potassium 3.5 mEq/L (3.5-5.1); Sodium 133 mEq/L (136-145); eGFR For African Americans > 60 (> 60); eGFR For Non-African Americans > 60 (> 60)
[2020-07-13 07:14] LABS: INR 1.5; Prothrombin Time 16.9 Seconds (9.4-12.1)
[2020-07-13] MEDS: Topiramate 25 MG TABLET GTUBE SCH (08:27)
[2020-07-13] MEDS: Gabapentin 300 MG CAPSULE GTUBE SCH ×3 (08:27→22:06)
[2020-07-13] MEDS: cefTRIAXone 1,000 MG in Water for inj. (sterile) 10 ML IVP SCH (08:28)
[2020-07-13] MEDS: *HR* LORazepam 2 MG/ML VIAL IVP PRN (11:01)
[2020-07-13 19:02] VITALS: BP 102/64
[2020-07-13] MEDS: Heparin 25,000UNIT/250ML 1/2NS 25,000 UNIT/250 ML IV.SOLN IVC SCH (19:06)
[2020-07-13] MEDS: Ringers Solution, Lactated 1,000 ML IVC SCH (19:06)
[2020-07-13] MEDS: traZODone 50 MG TABLET GTUBE SCH (22:06)
[2020-07-13] MEDS: tiZANidine 4 MG TABLET GTUBE SCH (22:06)
[2020-07-16 12:27] LABS: Acinetobacter baumannii by PCR Not Detected (Not Detect); Candida albicans by PCR DETECTED (Not Detect); Candida glabrata by PCR Not Detected (Not Detect); Candida krusei by PCR Not Detected (Not Detect); Candida parapsilosis by PCR Not Detected (Not Detect); Candida tropicalis by PCR Not Detected (Not Detect); Enterobacter cloacae Cmplx PCR Not Detected (Not Detect); Enterobacteriaceae by PCR Not Detected (Not Detect); Enterococcus by PCR Not Detected (Not Detect); Escherichia coli by PCR Not Detected (Not Detect); Klebsiella oxytoca by PCR Not Detected (Not Detect); Klebsiella pneumoniae by PCR Not Detected (Not Detect); Proteus by PCR Not Detected (Not Detect); Pseudomonas aeruginosa by PCR Not Detected (Not Detect); Serratia marcescens by PCR Not Detected (Not Detect); Staphylococcus aureus by PCR Not Detected (Not Detect); Staphylococcus by PCR Not Detected (Not Detect); Streptococcus agalactiae(B)PCR Not Detected (Not Detect); Streptococcus by PCR Not Detected (Not Detect); Streptococcus pneumoniae PCR Not Detected (Not Detect); Streptococcus pyogenes (A) PCR Not Detected (Not Detect)
== END 2020-07-13 23:26 | disposition short-term general hospital (02) | DRG 393 ==
LOC: EMEROOARM 10:02 → 3ANU 10:02 → SUATTDRO 17:01 → 3ANU 17:43
PROVIDERS: ADMIT Internal Medicine; ATTEND Student in an Organized Health Care Education/Training Program

== ENCOUNTER 2021-10-31 05:14 | Observation (INO) ==
[2021-10-31] MEDS ORDERED: Iopamidol - 370 500 ML MLS IVP ONE ×2 (06:58→08:03)
[2021-10-31] MEDS ORDERED: Morphine Sulfate 2 MG/ML SYRINGE IVP ONE ×2 (07:26→10:53)
[2021-10-31 07:38] LABS: Basophils % 0.2 %; Eosinophils % 0.5 %; Hemoglobin 11.9 g/dL (11.5-15.4); Immature Granulocytes % 0.4 % (0-4); Lymphocytes # 0.6 K/mcL (0.6-4.6); Lymphocytes % 7.7 %; Mean Corpuscular HGB Conc 32.2 g/dL (31.6-35.5); Mean Corpuscular Hemoglobin 29.3 pg (28.0-33.3); Mean Corpuscular Volume 91.1 fL (83.0-100.0); Mean Platelet Volume 10.1 fL (9.4-12.4); Monocytes # 0.7 K/mcL (0.0-1.3); Monocytes % 8.1 %; Neutrophils # 6.9 K/mcL (1.6-8.9); Platelet Count 171 K/mcL (140-400); Red Blood Count 4.06 M/mcL (3.82-4.97); Red Cell Distribution Width 14.4 % (11.5-14.5); Segmented Neutrophils % 83.1 %; White Blood Count 8.3 K/mcL (4.3-11.1)
[2021-10-31 07:40] LABS: VBG HCO3 30 mEq/L (21-27); VBG PCO2 60 mmHg (41-51); VBG PH 7.31 pH Units (7.32-7.42); VBG PO2 40 mmHg (25-50)
[2021-10-31 07:56] LABS: Bacteria,Urine Few per hpf (None-Few); Bilirubin,Urine Negative (Negative); Blood,Urine Negative (Negative); Clarity,Urine Turbid (Clear); Color,Urine Light-Yellow (Yellow); Glucose,Urine (UA) Normal (Normal); Ketones,Urine Trace mg/dL (Negative); Leukocyte Esterase,Urine Large (Negative); Mucus,Urine Few per lpf (None-Few); Nitrite,Urine Negative (Negative); PH,Urine 5.5 pH Units (5.0-8.0); Protein,Urine Negative (Neg-Trace); RBC,Urine 0-3 per hpf (0-3); Specific Gravity,Urine 1.016 (1.010-1.025); Squamous Epithelial Cell,Urine Moderate per hpf (None-Few); Urobilinogen,Urine Normal (Normal); WBC,Urine 30-50 per hpf (0-3)
[2021-10-31 08:16] LABS: Influenza A PCR Negative (Negative); Influenza B PCR Negative (Negative); Resp. Syncytial Virus PCR Negative (Negative)
[2021-10-31 08:21] LABS: SARS-CoV-2 by PCR (In House) Negative (Negative)
[2021-10-31 08:54] LABS: Alanine Aminotransferase 10 Units/L (7-52); Albumin 4.2 g/dL (3.5-5.7); Albumin/Globulin Ratio 1.4 (1.1-2.2); Alkaline Phosphatase 82 Units/L (34-104); Aspartate Amino Transferase 21 Units/L (13-39); BUN/Creatinine Ratio 21 (6-26); Bilirubin,Direct 0.1 mg/dL (0.0-0.2); Bilirubin,Indirect 0.5 mg/dL (0.0-1.0); Bilirubin,Total 0.6 mg/dL (0.3-1.0); Blood Urea Nitrogen 12 mg/dL (6-20); Calcium 9.6 mg/dL (8.6-10.3); Carbon Dioxide 29 mEq/L (23-29); Chloride 99 mEq/L (98-107); Glucose 112 mg/dL (70-105); Lipase 14 Units/L (11-82); Osmolality,Calculated 283 (280-300); Potassium 3.9 mEq/L (3.5-5.1); Sodium 136 mEq/L (136-145); Total Protein 7.2 g/dL (6.4-8.9); Troponin I < 0.03 ng/mL (< 0.04)
[2021-10-31 09:36] LABS: VBG HCO3 29 mEq/L (21-27); VBG PCO2 61 mmHg (41-51); VBG PH 7.29 pH Units (7.32-7.42); VBG PO2 43 mmHg (25-50)
[2021-10-31] MEDS ORDERED: Silver Nitrate Applicator 1 STICK..EA. TP ONE (12:01)
[2021-10-31] MEDS ORDERED: Ondansetron 4 MG/2 ML VIAL IVP PRN (13:29)
[2021-10-31] MEDS ORDERED: Naloxone 0.4 MG/ML INJ IVP PRN (13:29)
[2021-10-31] MEDS: Morphine Sulfate 2 MG/ML SYRINGE IVP PRN ×3 (14:16→22:41)
[2021-10-31] MEDS: D5% in 0.9% NACL w KCl 20 MEQ/1,000 ML MLS IVC SCH (18:52)
[2021-11-01] MEDS: Morphine Sulfate 2 MG/ML SYRINGE IVP PRN (02:59)
[2021-11-01 05:20] LABS: Basophils % 0.4 %; Eosinophils # 0.1 K/mcL (0.0-0.6); Eosinophils % 2.3 %; Hematocrit 32.1 % (35.3-44.9); Hemoglobin 10.4 g/dL (11.5-15.4); Immature Granulocytes % 0.2 % (0-4); Lymphocytes # 0.7 K/mcL (0.6-4.6); Lymphocytes % 14.7 %; Mean Corpuscular HGB Conc 32.4 g/dL (31.6-35.5); Mean Corpuscular Hemoglobin 29.3 pg (28.0-33.3); Mean Corpuscular Volume 90.4 fL (83.0-100.0); Mean Platelet Volume 10.1 fL (9.4-12.4); Monocytes # 0.6 K/mcL (0.0-1.3); Monocytes % 12.2 %; Neutrophils # 3.4 K/mcL (1.6-8.9); Platelet Count 167 K/mcL (140-400); Red Blood Count 3.55 M/mcL (3.82-4.97); Red Cell Distribution Width 14.4 % (11.5-14.5); Segmented Neutrophils % 70.2 %; White Blood Count 4.8 K/mcL (4.3-11.1)
[2021-11-01 05:39] LABS: BUN/Creatinine Ratio 22 (6-26); Blood Urea Nitrogen 10 mg/dL (6-20); Calcium 8.7 mg/dL (8.6-10.3); Carbon Dioxide 27 mEq/L (23-29); Chloride 106 mEq/L (98-107); Glucose 105 mg/dL (70-105); Magnesium 1.7 mg/dL (1.6-2.6); Osmolality,Calculated 289 (280-300); Phosphorous 3.2 mg/dL (2.7-4.5); Potassium 3.3 mEq/L (3.5-5.1); Sodium 140 mEq/L (136-145)
[2021-11-01] MEDS ORDERED: *HR* Enoxaparin 40 MG/0.4 ML SYRINGE SQ SCH (07:00)
[2021-11-01] MEDS ORDERED: Acetaminophen IV 1,000 MG/100 ML BAG IVPB ONE (07:51)
[2021-11-01] MEDS ORDERED: D5% in 0.9% NACL w KCl 20 MEQ/1,000 ML MLS IVC SCH (08:00)
[2021-11-01] MEDS: D5% in 0.9% NACL w KCl 20 MEQ/1,000 ML MLS IVC SCH (08:17)
[2021-11-01] MEDS ORDERED: *HR* Methadone 5 MG TABLET PO SCH (09:00)
[2021-11-01] MEDS ORDERED: Pantoprazole 40 MG VIAL IVP SCH (09:00)
[2021-11-01] MEDS ORDERED: Morphine Sulfate 2 MG/ML SYRINGE IVP PRN (09:05)
[2021-11-01 10:34] VITALS: BP 117/72; PULSE 82; TEMP 98.3; O2SAT 97
[2021-11-01] MEDS: *HR* OxyCODONE Immed Rel 5 MG TABLET PO PRN ×2 (10:57→14:59)
== END 2021-11-01 15:07 | disposition home health service (06) ==
LOC: 3ANU 05:14 → EMEROOARM 05:14 → SUATTDRO 13:43 → 3ANU 15:41
PROVIDERS: ADMIT Pharmacist; ATTEND Pharmacist